=== PATIENT | female | born 1970 | race Caucasian/White ===

== ENCOUNTER 2021-03-08 16:05 | Emergency (ER) | payer MEDICAID ==
[~2021-03-08] VITALS: Ht 149.9 cm; Wt 79.8 kg
[~2021-03-08 16:05] MED LIST: NITR100C7 PO; ONDA4TAB PO; SACC250C1 PO
[2021-03-08 16:10] VITALS: BP 120/58
[2021-03-08 17:01] VITALS: BP 120/58
== END 2021-03-08 17:02 | disposition home or self-care (01) ==
LOC: MED 16:05
DX: T19.2XXA Foreign body in vulva and vagina, initial encounter (principal); X58.XXXA Exposure to other specified factors, initial encounter; Y93.89 Activity, other specified; Y92.89 Other specified places as the place of occurrence of the external cause; Y99.8 Other external cause status
CPT/HCPCS: 99284